=== PATIENT | female | born 1975 | race Two or more races ===

== ENCOUNTER 2023-02-09 20:28 | Emergency (ER) | payer OTHER ==
[~2023-02-09] VITALS: Ht 162.6 cm; Wt 85.7 kg
[2023-02-09 23:16] VITALS: BP 104/70
[2023-02-09] MEDS ORDERED: TETANUS-DIPTH-ACEL PERTUSSIS 0.5ML SYR Tdap IM ONE (23:45)
[2023-02-10] MEDS ORDERED: AMOX500T86 PO (01:11)
== END 2023-02-10 01:17 | disposition home or self-care (01) ==
LOC: ER 20:28
DX: S61.214A Laceration without foreign body of right ring finger without damage to nail, initial encounter (principal); W26.0XXA Contact with knife, initial encounter; Y93.G1 Activity, food preparation and clean up; Y92.89 Other specified places as the place of occurrence of the external cause; Y99.8 Other external cause status
CPT/HCPCS: 12001; 90471; 90715